=== PATIENT | male | born 1960 | race Caucasian/White ===

== ENCOUNTER → 2019-10-23 | Outpatient (CLI) | payer OTHER ==
--- NOTE | 2019-10-23 11:36 | MR ---
EXAMINATION TYPE: MR shoulder LT wo con DATE OF EXAM: 10/23/2019 COMPARISON: NONE HISTORY: Left shoulder pain x 4 months TECHNIQUE: Multiplanar, multisequence imaging of the left shoulder is performed without contrast. FINDINGS: Rotator Cuff: Distal supraspinatus and infraspinatus tendons are intact. Subscapularis tendon is inta ct. Rotator cuff muscle bulk is preserved. Acromioclavicular Joint: Fairly severe narrowing with moderate to severe superior capsular hypertroph y. Moderate spurring. Possible underlying fat plane. Distal acromion morphology unremarkable. Glenohumeral Joint: Mild to moderate narrowing with small to moderate size glenohumeral joint effusio n. Small spurring inferior medial humeral head coronal image 16. Labrum: The superior labrum is blunted with abnormal signal system with degenerative tear. Biceps Tendon: The long head of biceps is in normal location within bicipital groove. There is abnorm al signal extracapsular portion with focal thickening seen best coronal image 10. Intracapsular porti on to biceps anchor not well identified. Cannot exclude tear. Bone marrow signal: No focal abnormal marrow signal is appreciated. Other: Slightly prominent but benign-appearing lower left axillary lymph nodes are seen. IMPRESSION: 1. Severe AC joint arthropathy with evidence of underlying impingement, correlate clinically. Moderat e glenohumeral joint arthropathy. 2. Significant intrasubstance tear extracapsular portion long head of biceps tendon with possible ful l-thickness tear intracapsular portion which is not well visualized. Superior labral tear thought pre sent.
== END | disposition home or self-care (01) ==
LOC: RADMRIMAIN 05:55
PROVIDERS: ATTEND Orthopaedic Surgery Sports Medicine
DX: M12.812 Other specific arthropathies, not elsewhere classified, left shoulder (principal); S43.492A Other sprain of left shoulder joint, initial encounter; M19.012 Primary osteoarthritis, left shoulder

== ENCOUNTER → 2021-06-02 | Outpatient (CLI) | payer OTHER ==
--- NOTE | 2021-06-03 04:58 | MR ---
EXAMINATION TYPE: MR shoulder RT wo con DATE OF EXAM: 06/02/2021 COMPARISON: None HISTORY: Right shoulder pain, decreased ROM. Hx surgery. The planar multiecho imaging of the right shoulder with no contrast. There is increased signal and thickening in the biceps tendon. Subscapularis tendon is intact. Glenoi d luther appear intact. There is no significant joint effusion. There is widening of the AC joint space with fluid signal in the joint space. This measures 12 mm. Th ere is some spurring on the inferior clavicle and impingement on the supraspinatus muscle and tendon. There are small areas of increased signal in the supraspinatus tendon without a full-thickness tear. There is no retraction. I see no focal bone destruction. The humeral head is intact. IMPRESSION: There are small areas of increased signal in the supraspinatus tendon consistent with mild tendinitis . No full-thickness tear. Widening of the AC joint space could relate to surgery and ligamentous tear . Minimal subacromial impingement. There is at least partial tear of the biceps tendon.
== END | disposition home or self-care (01) ==
LOC: RADMRIMAIN 15:50
PROVIDERS: ATTEND Orthopaedic Surgery Sports Medicine
DX: M75.111 Incomplete rotator cuff tear or rupture of right shoulder, not specified as traumatic (principal)